=== PATIENT | male | born 1995 ===

== ENCOUNTER 2019-02-22 22:24 | Emergency (ER) | payer OTHER ==
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
[2019-02-22 22:35] VITALS: BP 117/62
[2019-02-22] MEDS ORDERED: TETANUS,DIPH,PERTUSS(ACELL) VACCINE 0.5 ML SYRINGE IM ONE (22:41)
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
== END 2019-02-22 23:55 ==
LOC: ED 22:24
DX: S02.2XXA Fracture of nasal bones, initial encounter for closed fracture (principal); S05.12XA Contusion of eyeball and orbital tissues, left eye, initial encounter; Y04.0XXA Assault by unarmed brawl or fight, initial encounter; Y93.89 Activity, other specified; Y92.89 Other specified places as the place of occurrence of the external cause; Y99.8 Other external cause status
CPT/HCPCS: 70450; 70486; 90715